=== PATIENT | male | born 1945 | race Caucasian/White ===

== ENCOUNTER 2016-05-16 08:27 | Inpatient (IN) | payer MEDICARE, OTHER ==
[2016-05-16 16:39] LABS: Hematocrit 34.6 % (42.0-52.0); Mean Cell Volume 94.3 fl (78-100); Mean Corpuscular Hgb Conc 31.8 g/dl (32-36); Mean Platelet Volume 9.8 fl (6.0-9.5); Neutrophil # 8.2 K/mm3 (1.3-6.0); Neutrophil % 85.8 % (42-75.0); Platelet Count 273 K/mm3 (150-450); Red Blood Count 3.67 M/mm3 (4.7-6.0); Red Cell Distribution Width 13.3 % (11.5-14.0); White Blood Count 9.6 K/mm3 (4.0-10.5)
[2016-05-16 17:00] LABS: Albumin * 3.6 gm/dl (3.4-5.0); Anion Gap 5.9 mmol/L (6.8-13.8); Bilirubin, Total 0.5 mg/dL (0.0-1.1); Ca. Corrected For Albumin 8.8 mg/dL (8.4-10.2); Calcium * 8.8 mg/dL (7.9-10.9); Carbon Dioxide 38.9 mmol/L (24-32.6); Potassium 4.8 mmol/L (3.4-4.6); Total Protein 6.4 gm/dL (6.2-8.2)
[2016-05-16] MEDS: NORMAL SALINE 1,000 ML IV PRN (17:16)
[2016-05-16] MEDS: METHYLPREDNISOLONE SOD SUCC 100 MG in WATER FOR INJ.,BACTERIOSTATIC 0 ML IV SCH ×2 (17:17→21:18)
[2016-05-16] MEDS: LEVOFLOXACIN 500 MG TABLET PO SCH (17:19)
[2016-05-16] MEDS: ALBUTEROL SULFATE 2.5 MG/0.5 ML VIAL.NEB IH PRN (17:28)
[2016-05-16] MEDS: ALBUTEROL SULFATE 2.5 MG/0.5 ML VIAL.NEB IH SCH ×3 (17:28→22:09)
[2016-05-16] MEDS ORDERED: FLUTICASONE/SALMETEROL 14 PUFF DISK.W.DEV IH SCH (21:00)
[2016-05-16] MEDS: LORazepam 0.5 MG TABLET PO PRN (22:22)
[2016-05-17] MEDS: NORMAL SALINE 1,000 ML IV PRN ×3 (01:13→16:06)
[2016-05-17] MEDS: ALBUTEROL SULFATE 2.5 MG/0.5 ML VIAL.NEB IH SCH ×5 (02:45→18:22)
[2016-05-17] MEDS: LORazepam 0.5 MG TABLET PO PRN (03:46)
[2016-05-17 05:00] LABS: Urine Bilirubin Negative (NEGATIVE); Urine Blood Negative /ul (NEGATIVE); Urine Ketone 50 mg/dL (NEGATIVE); Urine Nitrite Negative (NEGATIVE); Urine Protein Negative (NEGATIVE); Urine Specific Gravity 1.025 SP.GR. (1.005-1.030); Urine Urobilinogen Normal (NORMAL)
[2016-05-17 05:03] LABS: Urine Appearance Clear; Urine Bacteria None Seen; Urine Color Yellow; Urine RBC 0-5 /hpf (0-5); Urine WBC 0-5 /hpf (0-5)
[2016-05-17] MEDS: METHYLPREDNISOLONE SOD SUCC 100 MG in WATER FOR INJ.,BACTERIOSTATIC 0 ML IV SCH ×4 (05:06→21:17)
[2016-05-17] MEDS: PANTOPRAZOLE SODIUM 40 MG TABLET.EC PO SCH (06:26)
--- NOTE | 2016-05-17 08:35 | PN ---
Subjective - Date and Time Seen Date: 05/17/16 Time: 08:31 Subjective Narrative: Still short of breath but feeling better compared yesterday Objective - Review of Systems Generalized/Overall Review: Reports: Weakness EENTM: Reports: Nose Congestion Respiratory: Reports: Cough, Shortness of Breath, Wheezing Cardiac: Reports: No Symptoms Reported Abdominal: Reports: No Symptoms Reported Genitourinary Symptoms: Reports: No Symptoms Reported Musculoskeletal Complaints: Reports: No Symptoms Reported Skin: Reports: No Symptoms Reported Endocrine: Reports: No Symptoms Reported - Vitals Vitals: Last Vital Signs Temp 36.3 C L 05/17/16 07:10 Pulse 99 05/17/16 07:10 Resp 20 05/17/16 07:10 BP 158/84 05/17/16 07:10 Pulse Ox 98 05/17/16 07:17 - Abnormal Lab Findings Abnormal Lab Findings: Abnormal Lab Results 05/16/16 05/16/16 05/16/16 Range/Units 16:35 16:35 16:55 RBC 3.67 L (4.7-6.0) M/mm3 Hgb 11.0 L (13.5-18.0) gm/dL Hct 34.6 L (42.0-52.0) % MCHC 31.8 L (32-36) g/dl MPV 9.8 H (6.0-9.5) fl Immature Gran # (Auto) 0.04 H (0.000-0.0310) K/mm3 Neutrophils % 85.8 H (42-75.0) % Lymphocytes % 5.7 L (20-51) % Neutrophils # 8.2 H (1.3-6.0) K/mm3 Lymphocytes # 0.6 L (1.5-3.5) k/mm3 pCO2 76.9 H* (35.0-48.0) mmHg pO2 (83.0-108.0) mmHg HCO3 37.2 H (21.0-28.0) mmol/L Total CO2 39.5 H (19.0-24.0) mmol/L Base Excess 8.1 H (-2.0-3.0) mmol/L ABG pH 7.30 L (7.35-7.45) ABG O2 Sat (Measured) (94.0-98.0) % Sodium 122 L (132-142) mmol/L Plasma Sodium 122 L (130-142) mmol/L Potassium 4.8 H (3.4-4.6) mmol/L Chloride 82 L (97-106) mmol/L Carbon Dioxide 38.9 H (24-32.6) mmol/L Anion Gap 5.9 L (6.8-13.8) mmol/L Est GFR (Non-Af Amer) 187 H (60-130) mL/min 05/16/16 Range/Units 19:11 RBC (4.7-6.0) M/mm3 Hgb (13.5-18.0) gm/dL Hct (42.0-52.0) % MCHC (32-36) g/dl MPV (6.0-9.5) fl Immature Gran # (Auto) (0.000-0.0310) K/mm3 Neutrophils % (42-75.0) % Lymphocytes % (20-51) % Neutrophils # (1.3-6.0) K/mm3 Lymphocytes # (1.5-3.5) k/mm3 pCO2 68.8 H (35.0-48.0) mmHg pO2 128.4 H (83.0-108.0) mmHg HCO3 34.0 H (21.0-28.0) mmol/L Total CO2 36.1 H (19.0-24.0) mmol/L Base Excess 6.0 H (-2.0-3.0) mmol/L ABG pH 7.31 L (7.35-7.45) ABG O2 Sat (Measured) 98.2 H (94.0-98.0) % Sodium (132-142) mmol/L Plasma Sodium (130-142) mmol/L Potassium (3.4-4.6) mmol/L Chloride (97-106) mmol/L Carbon Dioxide (24-32.6) mmol/L Anion Gap (6.8-13.8) mmol/L Est GFR (Non-Af Amer) (60-130) mL/min - Exam Constitutional: Present: Alert, Oriented x3, Cooperative Respiratory: Present: accessory muscle use, wheezing, expiration (prolonged) Cardiovascular/Chest: Present: no JVD, no murmur, tachycardia Abdomen: Present: soft, nontender Extremity: Present: no pedal edema Skin Exam: Present: normal color, no cyanosis Appearance: Present: appropriate appearance Eye contact: Present: cooperative Assessment/Plan - Problems/Diagnosis (1) Acute exacerbation of chronic obstructive pulmonary disease (COPD) Problem: Acute Narrative: Continue BiPAP with increase IPAP and increased respiratory rate; continue GPN and IV steroid; he will be admitted to acute care because of markedly elevated PCO2 on ABG (2) Hyponatremia Problem: Acute Narrative: Continue IV saline and will stop hydrochlorothiazide
[2016-05-17] MEDS: LEVOFLOXACIN 500 MG TABLET PO SCH (08:36)
[2016-05-17] MEDS: ROFLUMILAST 500 MCG TABLET PO SCH (08:37)
[2016-05-17] MEDS: BENAZEPRIL HCL 10 MG TABLET PO SCH (08:38)
[2016-05-17] MEDS: TIOTROPIUM BROMIDE 5 CAP INHALER IH SCH (08:39)
[2016-05-17 08:44] LABS: Albumin * 3.8 gm/dl (3.4-5.0); Anion Gap 12.5 mmol/L (6.8-13.8); Bilirubin, Total 0.8 mg/dL (0.0-1.1); Ca. Corrected For Albumin 8.5 mg/dL (8.4-10.2); Calcium * 8.7 mg/dL (7.9-10.9); Carbon Dioxide 31.7 mmol/L (24-32.6); Potassium 5.2 mmol/L (3.4-4.6); Total Protein 6.7 gm/dL (6.2-8.2)
[2016-05-17] MEDS ORDERED: ALPRAZolam 0.25 MG TABLET PO SCH (09:00)
[2016-05-17] MEDS ORDERED: TIOTROPIUM BROMIDE 5 CAP INHALER IH SCH (09:00)
[2016-05-17] MEDS ORDERED: HYDROCHLOROTHIAZIDE 25 MG TABLET PO SCH (09:00)
[2016-05-17] MEDS ORDERED: ESCITALOPRAM OXALATE 10 MG TAB PO SCH (09:00)
[2016-05-17] MEDS: FLUTICASONE/SALMETEROL 14 PUFF DISK.W.DEV IH SCH ×2 (09:16→20:57)
[2016-05-17] MEDS ORDERED: ALPRAZolam 0.5 MG TABLET PO ONE (15:46)
[2016-05-17] MEDS: ALPRAZolam 0.5 MG TABLET PO SCH (21:00)
[2016-05-18] MEDS: NORMAL SALINE 1,000 ML IV PRN ×4 (00:12→23:18)
[2016-05-18] MEDS: METHYLPREDNISOLONE SOD SUCC 100 MG in WATER FOR INJ.,BACTERIOSTATIC 0 ML IV SCH ×2 (04:06→09:22)
[2016-05-18] MEDS: ALBUTEROL SULFATE 2.5 MG/0.5 ML VIAL.NEB IH SCH ×2 (06:03→10:42)
[2016-05-18] MEDS: PANTOPRAZOLE SODIUM 40 MG TABLET.EC PO SCH (06:25)
[2016-05-18 07:59] LABS: Albumin * 3.4 gm/dl (3.4-5.0); Anion Gap 10.4 mmol/L (6.8-13.8); Bilirubin, Total 0.4 mg/dL (0.0-1.1); Ca. Corrected For Albumin 8.5 mg/dL (8.4-10.2); Calcium * 8.3 mg/dL (7.9-10.9); Carbon Dioxide 30.3 mmol/L (24-32.6); Potassium 4.7 mmol/L (3.4-4.6); Total Protein 5.9 gm/dL (6.2-8.2)
[2016-05-18] MEDS ORDERED: OXYMETAZOLINE HCL 150 SPRAY BTL NS ONE (08:41)
[2016-05-18] MEDS: FLUTICASONE/SALMETEROL 14 PUFF DISK.W.DEV IH SCH ×2 (08:56→20:20)
[2016-05-18] MEDS: LEVOFLOXACIN 500 MG TABLET PO SCH (08:56)
[2016-05-18] MEDS: ROFLUMILAST 500 MCG TABLET PO SCH (08:56)
[2016-05-18] MEDS: BENAZEPRIL HCL 10 MG TABLET PO SCH (08:57)
[2016-05-18] MEDS: TIOTROPIUM BROMIDE 5 CAP INHALER IH SCH (08:57)
[2016-05-18] MEDS: ALPRAZolam 0.5 MG TABLET PO SCH ×2 (08:59→20:22)
[2016-05-18] MEDS: FLUTICASONE PROPIONATE 120 SPRAY INHALER NS SCH (09:23)
--- NOTE | 2016-05-18 10:14 | PN ---
Subjective - Date and Time Seen Date: 05/18/16 Time: 10:10 Subjective Narrative: Complaining of stuffy nose still weak and short of breath. he did well last night Objective - Review of Systems Generalized/Overall Review: Reports: Weakness EENTM: Reports: Nose Congestion Respiratory: Reports: Cough, Shortness of Breath, Wheezing Cardiac: Reports: No Symptoms Reported Abdominal: Reports: No Symptoms Reported Genitourinary Symptoms: Reports: No Symptoms Reported Musculoskeletal Complaints: Reports: No Symptoms Reported Skin: Reports: No Symptoms Reported - Vitals Vitals: Last Vital Signs Temp 36.3 C L 05/18/16 09:30 Pulse 93 05/18/16 09:30 Resp 22 H 05/18/16 09:30 BP 161/85 05/18/16 09:30 Pulse Ox 99 05/18/16 09:30 - Abnormal Lab Findings Abnormal Lab Findings: Abnormal Lab Results 05/17/16 05/18/16 05/18/16 Range/Units Unknown 07:36 07:50 pCO2 59.1 H 60.1 H (35.0-48.0) mmHg pO2 140.6 H 109.7 H (83.0-108.0) mmHg HCO3 30.2 H 30.8 H (21.0-28.0) mmol/L Total CO2 32.0 H 32.7 H (19.0-24.0) mmol/L Base Excess 3.1 H 3.6 H (-2.0-3.0) mmol/L ABG pH 7.33 L 7.33 L (7.35-7.45) ABG O2 Sat (Measured) 98.6 H (94.0-98.0) % Sodium 129 L (132-142) mmol/L Plasma Sodium 129 L (130-142) mmol/L Potassium 4.7 H (3.4-4.6) mmol/L Chloride 93 L (97-106) mmol/L Est GFR (Non-Af Amer) 174 H D (60-130) mL/min BUN/Creatinine Ratio 24.0 H (9.0-21.6) Random Glucose 124 H (70-110) mg/dL Total Protein 5.9 L (6.2-8.2) gm/dL - Exam Constitutional: Present: Alert, Oriented x3, Cooperative ENT Exam: Present: normal ENT inspection Respiratory: Present: rhonchi, wheezing Cardiovascular/Chest: Present: regular rate, rhythm, no JVD Abdomen: Present: soft, nontender Extremity: Present: no pedal edema Skin Exam: Present: normal color, no cyanosis Assessment/Plan Plan Narrative: PCO2 has decreased to 60 from 78 after adjustment by increasing IPAP to 20 and EPAP of 5; will try to start weaning from the BiPAP today - Problems/Diagnosis (1) Acute exacerbation of chronic obstructive pulmonary disease (COPD) Problem: Acute (2) Hyponatremia Problem: Resolved Narrative: Sodium went up to 129. I would continue to withhold hydrochlorothiazide and Lexapro
[2016-05-18] MEDS: ALPRAZolam 0.5 MG TABLET PO PRN (11:31)
[2016-05-18] MEDS: predniSONE 20 MG TABLET PO SCH (13:40)
[2016-05-18] MEDS ORDERED: HALOPERIDOL 1 MG TABLET PO ONE (13:50)
[2016-05-18] MEDS: ALBUTEROL SULFATE/IPRATROPIUM 3 ML NEBU IH SCH ×3 (15:22→22:36)
[2016-05-19] MEDS: ALBUTEROL SULFATE/IPRATROPIUM 3 ML NEBU IH SCH ×6 (02:04→22:45)
[2016-05-19 06:44] LABS: Albumin * 3.1 gm/dl (3.4-5.0); Anion Gap 7.1 mmol/L (6.8-13.8); BUN/Creatinine Ratio 28.3 (9.0-21.6); Bilirubin, Total 0.3 mg/dL (0.0-1.1); Ca. Corrected For Albumin 8.7 mg/dL (8.4-10.2); Calcium * 8.3 mg/dL (7.9-10.9); Carbon Dioxide 31.2 mmol/L (24-32.6); Potassium 4.3 mmol/L (3.4-4.6); Total Protein 5.3 gm/dL (6.2-8.2)
[2016-05-19] MEDS: NORMAL SALINE 1,000 ML IV PRN (07:51)
[2016-05-19] MEDS: BENAZEPRIL HCL 10 MG TABLET PO SCH (08:40)
[2016-05-19] MEDS: ALPRAZolam 0.5 MG TABLET PO SCH ×2 (08:40→20:12)
[2016-05-19] MEDS: LEVOFLOXACIN 500 MG TABLET PO SCH (08:41)
[2016-05-19] MEDS: ROFLUMILAST 500 MCG TABLET PO SCH (08:41)
[2016-05-19] MEDS: PANTOPRAZOLE SODIUM 40 MG TABLET.EC PO SCH (08:41)
[2016-05-19] MEDS: predniSONE 20 MG TABLET PO SCH (08:41)
[2016-05-19] MEDS: FLUTICASONE PROPIONATE 120 SPRAY INHALER NS SCH (08:53)
[2016-05-19] MEDS: FLUTICASONE/SALMETEROL 14 PUFF DISK.W.DEV IH SCH ×2 (08:55→20:12)
--- NOTE | 2016-05-19 09:47 | PN ---
Subjective - Date and Time Seen Date: 05/19/16 Time: 09:43 Subjective Narrative: Still short of breath less coughing; continued to complain of generalized weakness Objective - Review of Systems Generalized/Overall Review: Reports: Weakness EENTM: Reports: No Symptoms Reported Respiratory: Reports: Shortness of Breath Cardiac: Reports: No Symptoms Reported Abdominal: Reports: No Symptoms Reported Genitourinary Symptoms: Reports: No Symptoms Reported Musculoskeletal Complaints: Reports: No Symptoms Reported Neurological: Reports: No Symptoms Reported Skin: Reports: No Symptoms Reported Endocrine: Reports: No Symptoms Reported - Vitals Vitals: Last Vital Signs Temp 37 C 05/19/16 07:06 Pulse 92 05/19/16 08:40 Resp 26 H 05/19/16 07:06 BP 138/60 05/19/16 08:40 Pulse Ox 99 05/19/16 07:06 - Abnormal Lab Findings Abnormal Lab Findings: Abnormal Lab Results 05/18/16 05/19/16 Range/Units 08:43 06:08 pO2 124.9 H (83.0-108.0) mmHg Total CO2 28.3 H (19.0-24.0) mmol/L ABG O2 Sat (Measured) 98.5 H (94.0-98.0) % Est GFR (Non-Af Amer) 191 H (60-130) mL/min BUN/Creatinine Ratio 28.3 H (9.0-21.6) Total Protein 5.3 L (6.2-8.2) gm/dL Albumin 3.1 L (3.4-5.0) gm/dl - Exam Constitutional: Present: Alert, Oriented x3, Cooperative ENT Exam: Present: normal ENT inspection Respiratory: Present: No wheezing Cardiovascular/Chest: Present: regular rate, rhythm, no JVD Abdomen: Present: soft, nontender Extremity: Present: no pedal edema Skin Exam: Present: normal color 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
[2016-05-19] MEDS: ALPRAZolam 0.5 MG TABLET PO PRN (16:54)
[2016-05-20] MEDS: ALBUTEROL SULFATE/IPRATROPIUM 3 ML NEBU IH SCH ×5 (02:34→18:06)
[2016-05-20] MEDS: PANTOPRAZOLE SODIUM 40 MG TABLET.EC PO SCH (06:43)
[2016-05-20 07:47] LABS: Hematocrit 32.4 % (42.0-52.0); Hemoglobin 9.9 gm/dL (13.5-18.0); Mean Corpuscular Hemoglobin 29.6 pg (27-31); Mean Corpuscular Hgb Conc 30.6 g/dl (32-36); Mean Platelet Volume 9.6 fl (6.0-9.5); Neutrophil # 6.2 K/mm3 (1.3-6.0); Neutrophil % 66.4 % (42-75.0); Platelet Count 231 K/mm3 (150-450); Red Blood Count 3.34 M/mm3 (4.7-6.0); Red Cell Distribution Width 13.2 % (11.5-14.0); White Blood Count 9.3 K/mm3 (4.0-10.5)
[2016-05-20 07:49] LABS: Total Cells Counted 100
[2016-05-20 08:11] LABS: Atypical (Reactive) Lymph 11 % (0-2); Band 7 % (0-2.0); Lymphocyte 21 % (20-51); Monocyte 11 % (0-9); Neutrophil 50 % (42-75); Neutrophil # 4.7 K/mm3 (1.3-6.0)
[2016-05-20] MEDS: predniSONE 20 MG TABLET PO SCH (09:13)
[2016-05-20] MEDS: ROFLUMILAST 500 MCG TABLET PO SCH (09:14)
[2016-05-20] MEDS: BENAZEPRIL HCL 10 MG TABLET PO SCH (09:14)
[2016-05-20] MEDS: LEVOFLOXACIN 500 MG TABLET PO SCH (09:15)
[2016-05-20] MEDS: FLUTICASONE PROPIONATE 120 SPRAY INHALER NS SCH (09:15)
[2016-05-20] MEDS: FLUTICASONE/SALMETEROL 14 PUFF DISK.W.DEV IH SCH ×2 (09:16→20:45)
[2016-05-20] MEDS: ALPRAZolam 0.5 MG TABLET PO SCH ×2 (09:20→20:45)
--- NOTE | 2016-05-20 12:09 | PN ---
Subjective - Date and Time Seen Date: 05/20/16 Time: 08:00 Subjective Narrative: A little better today. A little less SOB. A little less cough. Cough is not productive. Objective - Review of Systems Generalized/Overall Review: Reports: Malaise, Fatigue EENTM: Reports: No Symptoms Reported Respiratory: Reports: Cough, Shortness of Breath, Wheezing Cardiac: Reports: No Symptoms Reported Abdominal: Reports: No Symptoms Reported Genitourinary Symptoms: Reports: No Symptoms Reported Musculoskeletal Complaints: Reports: No Symptoms Reported Neurological: Reports: Anxiety Skin: Reports: No Symptoms Reported Endocrine: Reports: No Symptoms Reported Misc: All systems neg except as marked - Vitals Vitals: Last Vital Signs Selected Entries 05/20/16 07:04 Temperature 36.4 C L Temperature Axillary Source Pulse Rate 81 Respiratory 20 Rate Blood Pressure 144/85 Blood Pressure Supine Position O2 Sat by Pulse 100 Oximetry Oxygen Delivery CPAP Method - Abnormal Lab Findings Abnormal Lab Findings: Abnormal Lab Results 05/20/16 05/20/16 05/20/16 Range/Units 07:35 07:35 11:05 RBC 3.34 L (4.7-6.0) M/mm3 Hgb 9.9 L (13.5-18.0) gm/dL Hct 32.4 L (42.0-52.0) % MCHC 30.6 L (32-36) g/dl MPV 9.6 H (6.0-9.5) fl Band Neuts % (Manual) 7 H (0-2.0) % Lymphocytes % 13.2 L (20-51) % Monocytes % 20.1 H (0.0-9) % Monocytes % (Manual) 11 H (0-9) % Neutrophils # 6.2 H (1.3-6.0) K/mm3 Lymphocytes # 1.2 L (1.5-3.5) k/mm3 Monocytes # 1.9 H (0.0-1.0) k/mm3 Atypic/Reactive Lymphs 11 H (0-2) % pCO2 56.7 H 71.6 H* (35.0-48.0) mmHg pO2 164.4 H (83.0-108.0) mmHg HCO3 31.9 H 34.7 H (21.0-28.0) mmol/L Total CO2 33.6 H 36.9 H (19.0-24.0) mmol/L Base Excess 5.4 H 6.3 H (-2.0-3.0) mmol/L ABG pH 7.30 L (7.35-7.45) ABG O2 Sat (Measured) 99.0 H (94.0-98.0) % - Exam Constitutional: Present: Alert, Oriented x3, Cooperative, Well developed, Well nourished, Mild distress ENT Exam: Present: normal ENT inspection Neck: Present: normal inspection Respiratory: Present: decreased breath sounds, wheezing Cardiovascular/Chest: Present: regular rate, rhythm, no murmur Abdomen: Present: Normal bowel sounds, soft, nontender, nondistended, no rebound tenderness, no hepatospenomegaly, no masses Extremity: Present: normal inspection, pedal edema Skin Exam: Present: normal color, warm/dry, no cyanosis Lymphatic: Present: no adenopathy Neurologic: Present: alert, oriented x 3 Appearance: Present: appropriate appearance, appropriate insight, neat, no memory impairment Eye contact: Present: cooperative, good eye contact Assessment/Plan Plan Narrative: Continue current treatment. Needs bipap if not eating. Follow labs. - Problems/Diagnosis (1) Anxiety Problem: Chronic (2) Acute exacerbation of chronic obstructive pulmonary disease (COPD) Problem: Acute (3) Hypertension Problem: Chronic Qualifiers: Hypertension type: essential hypertension Qualified Code(s): I10 - Essential (primary) hypertension
[2016-05-20] MEDS: ALPRAZolam 0.5 MG TABLET PO PRN (19:08)
[2016-05-21] MEDS: ALBUTEROL SULFATE/IPRATROPIUM 3 ML NEBU IH SCH ×7 (00:01→22:17)
[2016-05-21 05:39] LABS: Hematocrit 32.3 % (42.0-52.0); Mean Cell Volume 96.7 fl (78-100); Mean Corpuscular Hemoglobin 29.9 pg (27-31); Mean Platelet Volume 10.4 fl (6.0-9.5); Neutrophil # 5.3 K/mm3 (1.3-6.0); Neutrophil % 67.7 % (42-75.0); Platelet Count 238 K/mm3 (150-450); Red Blood Count 3.34 M/mm3 (4.7-6.0); Red Cell Distribution Width 13.2 % (11.5-14.0); White Blood Count 7.8 K/mm3 (4.0-10.5)
[2016-05-21 06:00] LABS: Albumin * 3.1 gm/dl (3.4-5.0); Anion Gap 3.6 mmol/L (6.8-13.8); Bilirubin, Total 0.3 mg/dL (0.0-1.1); Ca. Corrected For Albumin 9.4 mg/dL (8.4-10.2); Carbon Dioxide 37.4 mmol/L (24-32.6); Total Protein 5.3 gm/dL (6.2-8.2)
[2016-05-21] MEDS: PANTOPRAZOLE SODIUM 40 MG TABLET.EC PO SCH (07:12)
[2016-05-21] MEDS: ALPRAZolam 0.5 MG TABLET PO PRN (07:21)
[2016-05-21] MEDS: FUROSEMIDE 10 MG/ML VIAL IV SCH ×2 (08:06→21:24)
[2016-05-21] MEDS: BENAZEPRIL HCL 10 MG TABLET PO SCH (08:13)
[2016-05-21] MEDS: LEVOFLOXACIN 500 MG TABLET PO SCH (08:13)
[2016-05-21] MEDS: predniSONE 20 MG TABLET PO SCH (08:14)
[2016-05-21] MEDS: ROFLUMILAST 500 MCG TABLET PO SCH (08:15)
[2016-05-21] MEDS: FLUTICASONE PROPIONATE 120 SPRAY INHALER NS SCH (08:16)
[2016-05-21] MEDS: ALPRAZolam 0.5 MG TABLET PO SCH ×2 (08:16→21:12)
[2016-05-21] MEDS: FLUTICASONE/SALMETEROL 14 PUFF DISK.W.DEV IH SCH ×2 (08:17→21:05)
--- NOTE | 2016-05-21 08:26 | PN ---
Subjective - Date and Time Seen Date: 05/21/16 Time: 08:22 Subjective Narrative: Breathing and feeling better today; really stronger and will try to do some walking Objective - Review of Systems Generalized/Overall Review: Reports: Weakness EENTM: Reports: No Symptoms Reported Respiratory: Reports: Shortness of Breath Cardiac: Reports: No Symptoms Reported Abdominal: Reports: No Symptoms Reported Genitourinary Symptoms: Reports: No Symptoms Reported Musculoskeletal Complaints: Reports: No Symptoms Reported Neurological: Reports: No Symptoms Reported Skin: Reports: No Symptoms Reported - Vitals Vitals: Last Vital Signs Temp 36.9 C 05/20/16 22:51 Pulse 90 05/21/16 08:13 Resp 18 05/21/16 06:09 BP 142/80 05/21/16 08:13 Pulse Ox 95 05/21/16 05:59 - Abnormal Lab Findings Abnormal Lab Findings: Abnormal Lab Results 05/20/16 05/20/16 05/21/16 Range/Units 11:05 13:00 04:55 RBC 3.34 L (4.7-6.0) M/mm3 Hgb 10.0 L (13.5-18.0) gm/dL Hct 32.3 L (42.0-52.0) % MCHC 31.0 L (32-36) g/dl MPV 10.4 H (6.0-9.5) fl Lymphocytes % 14.8 L (20-51) % Monocytes % 17.4 H (0.0-9) % Lymphocytes # 1.2 L (1.5-3.5) k/mm3 Monocytes # 1.4 H (0.0-1.0) k/mm3 pCO2 71.6 H* 53.8 H (35.0-48.0) mmHg pO2 73.7 L (83.0-108.0) mmHg HCO3 34.7 H 29.3 H (21.0-28.0) mmol/L Total CO2 36.9 H 31.0 H (19.0-24.0) mmol/L Base Excess 6.3 H (-2.0-3.0) mmol/L ABG pH 7.30 L (7.35-7.45) Carbon Dioxide (24-32.6) mmol/L Anion Gap (6.8-13.8) mmol/L Est GFR (Non-Af Amer) (60-130) mL/min BUN/Creatinine Ratio (9.0-21.6) Total Protein (6.2-8.2) gm/dL Albumin (3.4-5.0) gm/dl 05/21/16 05/21/16 Range/Units 04:55 05:55 RBC (4.7-6.0) M/mm3 Hgb (13.5-18.0) gm/dL Hct (42.0-52.0) % MCHC (32-36) g/dl MPV (6.0-9.5) fl Lymphocytes % (20-51) % Monocytes % (0.0-9) % Lymphocytes # (1.5-3.5) k/mm3 Monocytes # (0.0-1.0) k/mm3 pCO2 49.5 H (35.0-48.0) mmHg pO2 79.6 L (83.0-108.0) mmHg HCO3 29.8 H (21.0-28.0) mmol/L Total CO2 31.4 H (19.0-24.0) mmol/L Base Excess 3.9 H (-2.0-3.0) mmol/L ABG pH (7.35-7.45) Carbon Dioxide 37.4 H (24-32.6) mmol/L Anion Gap 3.6 L (6.8-13.8) mmol/L Est GFR (Non-Af Amer) 174 H (60-130) mL/min BUN/Creatinine Ratio 30.0 H (9.0-21.6) Total Protein 5.3 L (6.2-8.2) gm/dL Albumin 3.1 L (3.4-5.0) gm/dl - Exam Constitutional: Present: Alert, Oriented x3, Cooperative, No distress Respiratory: Present: decreased breath sounds, No wheezing Abdomen: Present: soft, nontender Extremity: Present: lower extremity edema Skin Exam: Present: normal color Assessment/Plan Plan Narrative: will start LAMA and continue LABA - Problems/Diagnosis (1) Acute exacerbation of chronic obstructive pulmonary disease (COPD) Problem: Acute (2) Hyponatremia Problem: Resolved (3) Anxiety Problem: Chronic (4) Anemia Problem: Acute Narrative: anemia work up
[2016-05-21 08:44] LABS: Iron 64 mcg/dL (35-120); Transferrin Sat. (% Sat.) 21 % (15-55)
[2016-05-21] MEDS: TIOTROPIUM BROMIDE 5 CAP INHALER IH SCH (10:09)
[2016-05-22] MEDS: ALBUTEROL SULFATE/IPRATROPIUM 3 ML NEBU IH SCH ×6 (02:20→22:49)
[2016-05-22 06:09] LABS: Hemoglobin 10.8 gm/dL (13.5-18.0); Mean Cell Volume 96.4 fl (78-100); Mean Corpuscular Hemoglobin 29.8 pg (27-31); Mean Corpuscular Hgb Conc 30.9 g/dl (32-36); Mean Platelet Volume 10.7 fl (6.0-9.5); Platelet Count 245 K/mm3 (150-450); Red Blood Count 3.63 M/mm3 (4.7-6.0); Red Cell Distribution Width 13.5 % (11.5-14.0); White Blood Count 8.6 K/mm3 (4.0-10.5)
[2016-05-22 06:12] LABS: Total Cells Counted 100
[2016-05-22 06:25] LABS: Albumin * 3.3 gm/dl (3.4-5.0); Anion Gap 7.9 mmol/L (6.8-13.8); BUN/Creatinine Ratio 28.6 (9.0-21.6); Bilirubin, Total 0.5 mg/dL (0.0-1.1); Calcium * 8.8 mg/dL (7.9-10.9); Carbon Dioxide 40.7 mmol/L (24-32.6); Potassium 3.6 mmol/L (3.4-4.6); Total Protein 5.6 gm/dL (6.2-8.2)
[2016-05-22 06:40] LABS: Atypical (Reactive) Lymph 1 % (0-2); Band 2 % (0-2.0); Lymphocyte 11 % (20-51); Monocyte 17 % (0-9); Neutrophil 69 % (42-75); Neutrophil # 5.9 K/mm3 (1.3-6.0); Platelet Estimate Normal (NORMAL); RBC Morphology Normal (NORMAL)
[2016-05-22] MEDS: FUROSEMIDE 10 MG/ML VIAL IV SCH (06:44)
[2016-05-22] MEDS: PANTOPRAZOLE SODIUM 40 MG TABLET.EC PO SCH (06:44)
--- NOTE | 2016-05-22 08:39 | PN ---
Subjective - Date and Time Seen Date: 05/22/16 Time: 08:34 Subjective Narrative: Breathing better but she did get short of breath; complaining of generalized weakness Objective - Review of Systems Generalized/Overall Review: Reports: Weakness EENTM: Reports: No Symptoms Reported Respiratory: Reports: Cough, Shortness of Breath Cardiac: Reports: No Symptoms Reported Abdominal: Reports: No Symptoms Reported Genitourinary Symptoms: Reports: No Symptoms Reported Musculoskeletal Complaints: Reports: No Symptoms Reported Neurological: Reports: No Symptoms Reported Skin: Reports: No Symptoms Reported - Vitals Vitals: Last Vital Signs Temp 36.3 C L 05/22/16 01:55 Pulse 94 05/22/16 06:44 Resp 24 H 05/22/16 06:12 BP 150/83 05/22/16 06:44 Pulse Ox 95 05/22/16 08:28 - Abnormal Lab Findings Abnormal Lab Findings: Abnormal Lab Results 05/21/16 05/22/16 05/22/16 Range/Units 01:55 05:15 05:15 RBC 3.63 L (4.7-6.0) M/mm3 Hgb 10.8 L (13.5-18.0) gm/dL Hct 35.0 L (42.0-52.0) % MCHC 30.9 L (32-36) g/dl MPV 10.7 H (6.0-9.5) fl Lymphocytes % (Manual) 11 L (20-51) % Monocytes % (Manual) 17 H (0-9) % Lymphocytes # (Manual) 0.9 L (1.5-3.5) k/mm3 Monocytes # (Manual) 1.5 H (0.0-1.0) k/mm3 Chloride 91 L (97-106) mmol/L Carbon Dioxide 40.7 H (24-32.6) mmol/L Est GFR (Non-Af Amer) 152 H (60-130) mL/min BUN/Creatinine Ratio 28.6 H (9.0-21.6) B-Natriuretic Peptide 359 H (5-350) pg/mL Total Protein 5.6 L (6.2-8.2) gm/dL Albumin 3.3 L (3.4-5.0) gm/dl - Exam Constitutional: Present: Alert, Oriented x3, Cooperative, No distress ENT Exam: Present: normal ENT inspection Respiratory: Present: No wheezing, other - Diminished breath sounds Cardiovascular/Chest: Present: regular rate, rhythm, other - Distant heart sound Extremity: Present: no pedal edema Skin Exam: Present: normal color, warm/dry, no cyanosis 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
[2016-05-22] MEDS: ALPRAZolam 0.5 MG TABLET PO SCH ×2 (09:29→21:19)
[2016-05-22] MEDS: predniSONE 20 MG TABLET PO SCH (09:29)
[2016-05-22] MEDS: ROFLUMILAST 500 MCG TABLET PO SCH (09:30)
[2016-05-22] MEDS: LEVOFLOXACIN 500 MG TABLET PO SCH (09:30)
[2016-05-22] MEDS: BENAZEPRIL HCL 10 MG TABLET PO SCH (09:30)
[2016-05-22] MEDS: TIOTROPIUM BROMIDE 5 CAP INHALER IH SCH (09:35)
[2016-05-22] MEDS: FLUTICASONE PROPIONATE 120 SPRAY INHALER NS SCH (09:35)
[2016-05-22] MEDS: FLUTICASONE/SALMETEROL 14 PUFF DISK.W.DEV IH SCH ×2 (09:35→21:19)
[2016-05-22] MEDS ORDERED: HALOPERIDOL 5 MG TABLET PO ONE (10:26)
[2016-05-22] MEDS: ESCITALOPRAM OXALATE 10 MG TAB PO SCH (11:06)
[2016-05-22] MEDS: ALPRAZolam 0.5 MG TABLET PO PRN (14:28)
[2016-05-23] MEDS: ALBUTEROL SULFATE/IPRATROPIUM 3 ML NEBU IH SCH ×6 (02:01→22:33)
[2016-05-23] MEDS: PANTOPRAZOLE SODIUM 40 MG TABLET.EC PO SCH (08:40)
[2016-05-23] MEDS: ESCITALOPRAM OXALATE 10 MG TAB PO SCH (08:40)
[2016-05-23] MEDS: ALPRAZolam 0.5 MG TABLET PO SCH ×2 (08:40→21:18)
[2016-05-23] MEDS: predniSONE 20 MG TABLET PO SCH (08:40)
[2016-05-23] MEDS: LEVOFLOXACIN 500 MG TABLET PO SCH (08:41)
[2016-05-23] MEDS: BENAZEPRIL HCL 10 MG TABLET PO SCH (08:41)
[2016-05-23] MEDS: ROFLUMILAST 500 MCG TABLET PO SCH (08:41)
[2016-05-23] MEDS: FLUTICASONE/SALMETEROL 14 PUFF DISK.W.DEV IH SCH ×2 (08:44→21:18)
[2016-05-23] MEDS: TIOTROPIUM BROMIDE 5 CAP INHALER IH SCH (08:44)
--- NOTE | 2016-05-23 08:45 | PN ---
Subjective - Date and Time Seen Date: 05/23/16 Time: 08:40 Subjective Narrative: still short of breath and feeling weak; complain of anxiety Objective - Review of Systems Generalized/Overall Review: Reports: Weakness EENTM: Reports: No Symptoms Reported Respiratory: Reports: Shortness of Breath Cardiac: Reports: No Symptoms Reported Abdominal: Reports: No Symptoms Reported Genitourinary Symptoms: Reports: No Symptoms Reported Musculoskeletal Complaints: Reports: No Symptoms Reported Neurological: Reports: No Symptoms Reported Skin: Reports: No Symptoms Reported - Vitals Vitals: Last Vital Signs Temp 37.0 C 05/23/16 05:00 Pulse 96 05/23/16 07:40 Resp 22 H 05/23/16 07:40 BP 126/78 05/23/16 05:00 Pulse Ox 96 05/23/16 07:40 - Abnormal Lab Findings Abnormal Lab Findings: Abnormal Lab Results 05/22/16 Range/Units 08:32 pCO2 62.6 H (35.0-48.0) mmHg pO2 113.9 H (83.0-108.0) mmHg HCO3 35.4 H (21.0-28.0) mmol/L Total CO2 37.3 H (19.0-24.0) mmol/L Base Excess 8.2 H (-2.0-3.0) mmol/L - Exam Constitutional: Present: Alert, Oriented x3, Cooperative, No distress Respiratory: Present: lungs clear, other - diminize breath sounds Abdomen: Present: soft, nontender Extremity: Present: no pedal edema Skin Exam: Present: normal color Assessment/Plan Plan Narrative: Oxygenating well but continued to be hypercapnic getting dependent on BiPAP; will plan on jail placement and arrangements for home BiPAP - Problems/Diagnosis (1) Acute exacerbation of chronic obstructive pulmonary disease (COPD) Problem: Acute (2) Hyponatremia Problem: Resolved (3) Anxiety Problem: Chronic (4) Anemia Problem: Acute
[2016-05-23] MEDS: FLUTICASONE PROPIONATE 120 SPRAY INHALER NS SCH (08:50)
[2016-05-23] MEDS: ALPRAZolam 0.5 MG TABLET PO PRN ×2 (13:22→19:36)
[2016-05-24] MEDS: ALBUTEROL SULFATE/IPRATROPIUM 3 ML NEBU IH SCH ×6 (02:08→22:07)
[2016-05-24] MEDS: PANTOPRAZOLE SODIUM 40 MG TABLET.EC PO SCH (06:37)
[2016-05-24 06:39] LABS: Hematocrit 33.9 % (42.0-52.0); Hemoglobin 10.5 gm/dL (13.5-18.0); Mean Cell Volume 96.3 fl (78-100); Mean Corpuscular Hemoglobin 29.8 pg (27-31); Mean Platelet Volume 10.2 fl (6.0-9.5); Neutrophil # 5.8 K/mm3 (1.3-6.0); Neutrophil % 67.2 % (42-75.0); Platelet Count 226 K/mm3 (150-450); Red Blood Count 3.52 M/mm3 (4.7-6.0); Red Cell Distribution Width 13.6 % (11.5-14.0); White Blood Count 8.6 K/mm3 (4.0-10.5)
[2016-05-24] MEDS: ALPRAZolam 0.5 MG TABLET PO PRN (06:48)
[2016-05-24 07:03] LABS: Albumin * 3.1 gm/dl (3.4-5.0); Anion Gap 7.2 mmol/L (6.8-13.8); BUN/Creatinine Ratio 28.9 (9.0-21.6); Bilirubin, Total 0.5 mg/dL (0.0-1.1); Ca. Corrected For Albumin 9.1 mg/dL (8.4-10.2); Calcium * 8.7 mg/dL (7.9-10.9); Carbon Dioxide 40.4 mmol/L (24-32.6); Potassium 3.6 mmol/L (3.4-4.6); Total Protein 5.4 gm/dL (6.2-8.2)
--- NOTE | 2016-05-24 08:41 | PN ---
Subjective - Date and Time Seen Date: 05/24/16 Time: 08:37 Subjective Narrative: Complaining of shortness of breath and weakness Objective - Review of Systems Generalized/Overall Review: Reports: Weakness EENTM: Reports: No Symptoms Reported Respiratory: Reports: Shortness of Breath Cardiac: Reports: No Symptoms Reported Abdominal: Reports: No Symptoms Reported Genitourinary Symptoms: Reports: No Symptoms Reported Musculoskeletal Complaints: Reports: No Symptoms Reported Neurological: Reports: No Symptoms Reported Skin: Reports: No Symptoms Reported - Vitals Vitals: Last Vital Signs Temp 36.7 C 05/24/16 06:48 Pulse 84 05/24/16 06:48 Resp 20 05/24/16 06:48 BP 146/83 05/24/16 06:48 Pulse Ox 100 05/24/16 06:48 - Abnormal Lab Findings Abnormal Lab Findings: Abnormal Lab Results 05/23/16 05/24/16 05/24/16 Range/Units 11:10 06:13 06:29 RBC 3.52 L (4.7-6.0) M/mm3 Hgb 10.5 L (13.5-18.0) gm/dL Hct 33.9 L (42.0-52.0) % MCHC 31.0 L (32-36) g/dl MPV 10.2 H (6.0-9.5) fl Immature Gran % (Auto) 0.50 H (0.001-0.429) % Immature Gran # (Auto) 0.04 H (0.000-0.0310) K/mm3 Lymphocytes % 16.2 L (20-51) % Monocytes % 15.2 H (0.0-9) % Lymphocytes # 1.4 L (1.5-3.5) k/mm3 Monocytes # 1.3 H (0.0-1.0) k/mm3 pCO2 73.1 H* (35.0-48.0) mmHg HCO3 40.8 H (21.0-28.0) mmol/L Total CO2 43.1 H (19.0-24.0) mmol/L Base Excess 12.8 H (-2.0-3.0) mmol/L Chloride (97-106) mmol/L Carbon Dioxide (24-32.6) mmol/L Est GFR (Non-Af Amer) (60-130) mL/min BUN/Creatinine Ratio (9.0-21.6) Total Protein (6.2-8.2) gm/dL Albumin (3.4-5.0) gm/dl Ur Random Sodium 37 L (40-220) mmol/L 05/24/16 Range/Units 06:29 RBC (4.7-6.0) M/mm3 Hgb (13.5-18.0) gm/dL Hct (42.0-52.0) % MCHC (32-36) g/dl MPV (6.0-9.5) fl Immature Gran % (Auto) (0.001-0.429) % Immature Gran # (Auto) (0.000-0.0310) K/mm3 Lymphocytes % (20-51) % Monocytes % (0.0-9) % Lymphocytes # (1.5-3.5) k/mm3 Monocytes # (0.0-1.0) k/mm3 pCO2 (35.0-48.0) mmHg HCO3 (21.0-28.0) mmol/L Total CO2 (19.0-24.0) mmol/L Base Excess (-2.0-3.0) mmol/L Chloride 88 L (97-106) mmol/L Carbon Dioxide 40.4 H (24-32.6) mmol/L Est GFR (Non-Af Amer) 196 H D (60-130) mL/min BUN/Creatinine Ratio 28.9 H (9.0-21.6) Total Protein 5.4 L (6.2-8.2) gm/dL Albumin 3.1 L (3.4-5.0) gm/dl Ur Random Sodium (40-220) mmol/L - Exam Constitutional: Present: Alert, Oriented x3, Cooperative, No distress Respiratory: Present: no respiratory distress, decreased breath sounds Cardiovascular/Chest: Present: regular rate, rhythm Abdomen: Present: soft, nontender Extremity: Present: no pedal edema Assessment/Plan Plan Narrative: O2 saturation during the night to remain within normal limit; ABG this morning show PCO2 of 72 with normal pH I will refer him to a livestock farm workers Dr. Brewster I will put him back on BiPAP IPAP pressure of 20 and a EPAP pressure of 5 - Problems/Diagnosis (1) Acute exacerbation of chronic obstructive pulmonary disease (COPD) Problem: Acute (2) Hyponatremia Problem: Resolved (3) Anxiety Problem: Chronic (4) Anemia Problem: Acute
[2016-05-24] MEDS: FLUTICASONE/SALMETEROL 14 PUFF DISK.W.DEV IH SCH ×2 (09:20→20:19)
[2016-05-24] MEDS: ROFLUMILAST 500 MCG TABLET PO SCH (09:21)
[2016-05-24] MEDS: ESCITALOPRAM OXALATE 10 MG TAB PO SCH (09:21)
[2016-05-24] MEDS: BENAZEPRIL HCL 10 MG TABLET PO SCH (09:21)
[2016-05-24] MEDS: FLUTICASONE PROPIONATE 120 SPRAY INHALER NS SCH (09:21)
[2016-05-24] MEDS: LEVOFLOXACIN 500 MG TABLET PO SCH (09:21)
[2016-05-24] MEDS: predniSONE 20 MG TABLET PO SCH (09:21)
[2016-05-24] MEDS: TIOTROPIUM BROMIDE 5 CAP INHALER IH SCH (09:22)
[2016-05-24] MEDS: ALPRAZolam 0.5 MG TABLET PO SCH ×2 (09:34→20:21)
[2016-05-24] MEDS ORDERED: ALPRAZolam 0.5 MG TABLET PO ONE (14:33)
[2016-05-25] MEDS: ALBUTEROL SULFATE/IPRATROPIUM 3 ML NEBU IH SCH ×6 (03:10→22:17)
[2016-05-25] MEDS: PANTOPRAZOLE SODIUM 40 MG TABLET.EC PO SCH (07:26)
[2016-05-25] MEDS: FLUTICASONE/SALMETEROL 14 PUFF DISK.W.DEV IH SCH ×2 (08:14→20:37)
[2016-05-25] MEDS: TIOTROPIUM BROMIDE 5 CAP INHALER IH SCH (08:15)
[2016-05-25] MEDS: FLUTICASONE PROPIONATE 120 SPRAY INHALER NS SCH (08:19)
[2016-05-25] MEDS: BENAZEPRIL HCL 10 MG TABLET PO SCH (08:20)
[2016-05-25] MEDS: ESCITALOPRAM OXALATE 10 MG TAB PO SCH (08:22)
[2016-05-25] MEDS: LEVOFLOXACIN 500 MG TABLET PO SCH (08:23)
[2016-05-25] MEDS: ROFLUMILAST 500 MCG TABLET PO SCH (08:25)
[2016-05-25] MEDS: predniSONE 20 MG TABLET PO SCH (08:26)
[2016-05-25] MEDS: ALPRAZolam 0.5 MG TABLET PO SCH ×2 (08:32→20:32)
--- NOTE | 2016-05-25 14:25 | PN ---
Subjective - Date and Time Seen Date: 05/25/16 Time: 13:30 Subjective Narrative: Complaining of shortness of breath and severe weakness Objective - Review of Systems Generalized/Overall Review: Reports: Weakness Respiratory: Reports: Shortness of Breath Cardiac: Reports: No Symptoms Reported Abdominal: Reports: No Symptoms Reported Genitourinary Symptoms: Reports: No Symptoms Reported Musculoskeletal Complaints: Reports: No Symptoms Reported Neurological: Reports: No Symptoms Reported Skin: Reports: No Symptoms Reported - Vitals Vitals: Last Vital Signs Temp 36.9 C 05/25/16 10:15 Pulse 87 05/25/16 10:46 Resp 18 05/25/16 10:46 BP 139/76 05/25/16 10:15 Pulse Ox 100 05/25/16 10:36 - Exam Constitutional: Present: Alert, Oriented x3, Cooperative, No distress Respiratory: Present: chest non-tender, no accessory muscle use, decreased breath sounds, No wheezing Cardiovascular/Chest: Present: regular rate, rhythm Abdomen: Present: soft, nontender Skin Exam: Present: normal color, warm/dry Assessment/Plan Plan Narrative: He is oxygenating well but the main hypercapnic. I have consulted registered nurse cardiovascular icu Dr. Brewster and his recommendation is for him to be transferred to a long-term pulmonary rehabilitation hospital - Problems/Diagnosis (1) Acute exacerbation of chronic obstructive pulmonary disease (COPD) Problem: Acute (2) Hyponatremia Problem: Resolved (3) Anxiety Problem: Chronic (4) Anemia Problem: Acute
[2016-05-25] MEDS: ALPRAZolam 0.5 MG TABLET PO PRN (14:29)
[2016-05-26] MEDS: ALBUTEROL SULFATE/IPRATROPIUM 3 ML NEBU IH SCH ×6 (02:09→22:25)
[2016-05-26] MEDS: PANTOPRAZOLE SODIUM 40 MG TABLET.EC PO SCH (06:33)
--- NOTE | 2016-05-26 08:04 | PN ---
Subjective - Date and Time Seen Date: 05/26/16 Time: 08:00 Subjective Narrative: Complaining of shortness of breath and weakness Continued to have anxiety spell Objective - Review of Systems Generalized/Overall Review: Reports: Weakness EENTM: Reports: No Symptoms Reported Respiratory: Reports: Cough, Shortness of Breath, Wheezing Cardiac: Reports: No Symptoms Reported Abdominal: Reports: No Symptoms Reported, Other - anorexia Genitourinary Symptoms: Reports: No Symptoms Reported Musculoskeletal Complaints: Reports: No Symptoms Reported Neurological: Reports: Anxiety, Depressed, Tremors, Weakness Skin: Reports: No Symptoms Reported - Vitals Vitals: Last Vital Signs Temp 36.7 C 05/26/16 04:02 Pulse 79 05/26/16 06:09 Resp 18 05/26/16 06:09 BP 133/83 05/26/16 04:02 Pulse Ox 100 05/26/16 07:13 - Exam Constitutional: Present: Alert, Oriented x3, Cooperative Respiratory: Present: decreased breath sounds, accessory muscle use Cardiovascular/Chest: Present: regular rate, rhythm Abdomen: Present: soft, nontender Extremity: Present: no pedal edema Skin Exam: Present: normal color, warm/dry Eye contact: Present: cooperative Assessment/Plan Plan Narrative: According to the continuous pillowcase cutter. Talking to [facility] that he does not qualify for admission their unit Therefore will continue current care and pulmonary rehabilitation and possible penitentiary transfer on Sunday - Problems/Diagnosis (1) Acute exacerbation of chronic obstructive pulmonary disease (COPD) Problem: Acute (2) Hyponatremia Problem: Resolved (3) Anxiety Problem: Chronic (4) Anemia Problem: Acute
[2016-05-26] MEDS: BENAZEPRIL HCL 10 MG TABLET PO SCH (09:15)
[2016-05-26] MEDS: TIOTROPIUM BROMIDE 5 CAP INHALER IH SCH (09:16)
[2016-05-26] MEDS: FLUTICASONE PROPIONATE 120 SPRAY INHALER NS SCH (09:17)
[2016-05-26] MEDS: predniSONE 20 MG TABLET PO SCH (09:18)
[2016-05-26] MEDS: ROFLUMILAST 500 MCG TABLET PO SCH (09:19)
[2016-05-26] MEDS: ESCITALOPRAM OXALATE 10 MG TAB PO SCH (09:19)
[2016-05-26] MEDS: ALPRAZolam 0.5 MG TABLET PO SCH ×2 (09:25→21:33)
[2016-05-26] MEDS: FLUTICASONE/SALMETEROL 14 PUFF DISK.W.DEV IH SCH ×2 (09:25→20:42)
[2016-05-26] MEDS: ALPRAZolam 0.5 MG TABLET PO PRN ×2 (13:25→19:33)
[2016-05-26] MEDS: ALBUTEROL SULFATE 2.5 MG/0.5 ML VIAL.NEB IH PRN (14:25)
[2016-05-27] MEDS: ALBUTEROL SULFATE/IPRATROPIUM 3 ML NEBU IH SCH ×7 (02:27→22:28)
[2016-05-27] MEDS: PANTOPRAZOLE SODIUM 40 MG TABLET.EC PO SCH (07:40)
[2016-05-27] MEDS: MORPHINE SULFATE 10 MG/0.5 ML SYRINGE PO PRN ×2 (07:40→23:38)
--- NOTE | 2016-05-27 07:43 | PN ---
Subjective - Date and Time Seen Date: 05/27/16 Time: 07:14 Subjective Narrative: Pt did ok overnight without any complaints. Was able to tolerate wearing the bipap for 4 hours without problems. Only received scheduled dose of xanax, no PRN. Pt is agreeable to trying morphine PRN for air hunger to assist with breathing. Still pending placement and discussion with family for goals of care , will be here over the weekend. Objective - Review of Systems Generalized/Overall Review: Reports: Weakness, Fatigue EENTM: Reports: No Symptoms Reported Respiratory: Reports: Cough, Shortness of Breath, Orthopnea, Wheezing Cardiac: Reports: No Symptoms Reported Abdominal: Reports: Other - poor appetite Genitourinary Symptoms: Reports: No Symptoms Reported Musculoskeletal Complaints: Reports: No Symptoms Reported Neurological: Reports: Anxiety, Depressed Skin: Reports: Dryness Endocrine: Reports: No Symptoms Reported - Vitals Vitals: Last Vital Signs Temp 36.7 C 05/27/16 02:35 Pulse 87 05/27/16 06:17 Resp 18 05/27/16 06:17 BP 137/71 05/27/16 02:35 Pulse Ox 100 05/27/16 07:11 - Exam Constitutional: Present: Alert, Oriented x3, Cooperative, No distress ENT Exam: Present: hearing grossly normal Respiratory: Present: respiratory distress, decreased breath sounds, accessory muscle use, wheezing Cardiovascular/Chest: Present: normal peripheral pulses, no chest tenderness Abdomen: Present: Normal bowel sounds, soft, nontender, nondistended Extremity: Present: normal range of motion, non-tender, normal inspection, no calf tenderness, normal capillary refill Skin Exam: Present: normal color, warm/dry, no cyanosis Neurologic: Present: alert, oriented x 3, depressed affect Appearance: Present: appropriate appearance, appropriate insight, neat, no memory impairment Eye contact: Present: cooperative, good eye contact, normal speech Thoughts: Present: normal thought pattern, no apparent hallucination Assessment/Plan - Problems/Diagnosis (1) Anxiety Problem: Chronic Narrative: Continue xanax BID and PRN Q6H for anxiety, will add morphine for air hunger. (2) Acute exacerbation of chronic obstructive pulmonary disease (COPD) Problem: Acute Narrative: Pt with end stage COPD, likely nearing the end with poor hope of full recovery. Dr. Woods plans on discussing goals of care later when is present. Pt agreeable to add morphine to regimen to assist with air hunger. Tolerated 4 hours of bipap last night, continues to be dyspnic while at rest with increased anxiety related to SOB. Pending placement per CM. -Bipap as tolerated @[facility] -Ventimask during the day Continue the following medications as ordered: -Duoneb scheduled and PRN -Xanax BID and PRN -Spiriva daily -Advair daily -Daliresp daily (3) Hypertension Problem: Chronic Qualifiers: Hypertension type: essential hypertension Qualified Code(s): I10 - Essential (primary) hypertension Narrative: Stable -VS Q4H
[2016-05-27] MEDS: FLUTICASONE/SALMETEROL 14 PUFF DISK.W.DEV IH SCH ×2 (09:00→21:37)
[2016-05-27] MEDS: TIOTROPIUM BROMIDE 5 CAP INHALER IH SCH (09:01)
[2016-05-27] MEDS: ROFLUMILAST 500 MCG TABLET PO SCH (09:03)
[2016-05-27] MEDS: BENAZEPRIL HCL 10 MG TABLET PO SCH (09:03)
[2016-05-27] MEDS: predniSONE 20 MG TABLET PO SCH (09:03)
[2016-05-27] MEDS: FLUTICASONE PROPIONATE 120 SPRAY INHALER NS SCH (09:03)
[2016-05-27] MEDS: ESCITALOPRAM OXALATE 10 MG TAB PO SCH (09:03)
[2016-05-27] MEDS: ALPRAZolam 0.5 MG TABLET PO SCH ×2 (09:06→21:41)
[2016-05-27] MEDS: ALBUTEROL SULFATE 2.5 MG/0.5 ML VIAL.NEB IH PRN ×2 (11:37→17:16)
[2016-05-28] MEDS: ALBUTEROL SULFATE/IPRATROPIUM 3 ML NEBU IH SCH ×7 (02:49→22:10)
[2016-05-28 05:03] LABS: Hematocrit 34.6 % (42.0-52.0); Hemoglobin 10.7 gm/dL (13.5-18.0); Mean Cell Volume 95.6 fl (78-100); Mean Corpuscular Hemoglobin 29.6 pg (27-31); Mean Corpuscular Hgb Conc 30.9 g/dl (32-36); Mean Platelet Volume 10.5 fl (6.0-9.5); Neutrophil # 6.5 K/mm3 (1.3-6.0); Neutrophil % 68.4 % (42-75.0); Platelet Count 220 K/mm3 (150-450); Red Blood Count 3.62 M/mm3 (4.7-6.0); Red Cell Distribution Width 13.9 % (11.5-14.0); White Blood Count 9.5 K/mm3 (4.0-10.5)
[2016-05-28 05:06] LABS: Anion Gap 4.5 mmol/L (6.8-13.8); BUN/Creatinine Ratio 25.6 (9.0-21.6); Calcium * 8.5 mg/dL (7.9-10.9); Carbon Dioxide 41.4 mmol/L (24-32.6); Estimated Creat Clear 150.2; Potassium 3.9 mmol/L (3.4-4.6)
[2016-05-28] MEDS: PANTOPRAZOLE SODIUM 40 MG TABLET.EC PO SCH (06:47)
[2016-05-28] MEDS: MORPHINE SULFATE 10 MG/0.5 ML SYRINGE PO PRN ×3 (07:05→19:37)
--- NOTE | 2016-05-28 07:15 | PN ---
Subjective - Date and Time Seen Date: 05/28/16 Time: 07:00 Subjective Narrative: Pt is doing much better upon examination this morning. His breathing is less labored, he is not as anxious, and he is able to tolerate 3LNC versus venti mask. He received 2 doses of morphine yesterday. LAUREN edema with slight improvement following elevation. Does agree that this allowed him to fall asleep and wear his bipap for 1.5 hours. Is interested in a sleeping aide to assist with his compliance of the bipap and energy during the day. Educated on the use of oral morphine for his air hunger. Eager to start rehab, hoping to be discharged tomorrow to [facility]. Objective - Review of Systems Generalized/Overall Review: Reports: Weakness, Fatigue EENTM: Reports: Other - dry mucus membranes Respiratory: Reports: Cough, Shortness of Breath, Orthopnea, Wheezing Cardiac: Reports: Edema - BUE Abdominal: Reports: No Symptoms Reported Genitourinary Symptoms: Reports: No Symptoms Reported Musculoskeletal Complaints: Reports: No Symptoms Reported Neurological: Reports: Anxiety, Depressed, Weakness Skin: Reports: Dryness Endocrine: Reports: No Symptoms Reported - Vitals Vitals: Last Vital Signs Temp 37.0 C 05/28/16 01:00 Pulse 80 05/28/16 06:09 Resp 20 05/28/16 06:09 BP 146/41 05/28/16 01:00 Pulse Ox 98 05/28/16 05:59 - Abnormal Lab Findings Abnormal Lab Findings: Abnormal Lab Results 05/28/16 05/28/16 Range/Units 04:55 04:55 RBC 3.62 L (4.7-6.0) M/mm3 Hgb 10.7 L (13.5-18.0) gm/dL Hct 34.6 L (42.0-52.0) % MCHC 30.9 L (32-36) g/dl MPV 10.5 H (6.0-9.5) fl Immature Gran % (Auto) 1.00 H (0.001-0.429) % Immature Gran # (Auto) 0.09 H (0.000-0.0310) K/mm3 Lymphocytes % 14.6 L (20-51) % Monocytes % 15.2 H (0.0-9) % Neutrophils # 6.5 H (1.3-6.0) K/mm3 Lymphocytes # 1.4 L (1.5-3.5) k/mm3 Monocytes # 1.4 H (0.0-1.0) k/mm3 Chloride 93 L (97-106) mmol/L Carbon Dioxide 41.4 H (24-32.6) mmol/L Anion Gap 4.5 L (6.8-13.8) mmol/L Est GFR (Non-Af Amer) 207 H (60-130) mL/min BUN/Creatinine Ratio 25.6 H (9.0-21.6) - Exam Constitutional: Present: Alert, Oriented x3, Cooperative, No distress, Elderly ENT Exam: Present: normal ENT inspection, hearing grossly normal Respiratory: Present: chest non-tender, no accessory muscle use, decreased breath sounds, wheezing, expiration (prolonged) Cardiovascular/Chest: Present: normal peripheral pulses, regular rate, rhythm, no chest tenderness, no murmur Abdomen: Present: Normal bowel sounds, soft, nontender, nondistended Extremity: Present: normal range of motion, non-tender, normal inspection, no pedal edema, normal capillary refill, swelling - LAUREN dependent edema Skin Exam: Present: normal color, warm/dry, no cyanosis Neurologic: Present: alert, normal mood/affect, oriented x 3 Appearance: Present: appropriate appearance, appropriate insight, neat, no memory impairment Eye contact: Present: cooperative, good eye contact, normal speech Thoughts: Present: normal thought pattern, no apparent hallucination Assessment/Plan - Problems/Diagnosis (1) Anxiety Problem: Chronic Narrative: Much improved following the addition of oral morphine Q4H PRN for air hunger. -Xanax PRN Q6H and BID -Morphine PRN Q4H air hunger (2) Acute exacerbation of chronic obstructive pulmonary disease (COPD) Problem: Acute Narrative: Stable, No medication changes. Co2 41.4 on labs this morning, continue to increase tolerance to bipap at [facility]. (3) Hypertension Problem: Chronic Qualifiers: Hypertension type: essential hypertension Qualified Code(s): I10 - Essential (primary) hypertension Narrative: Chronic, stable -VS Q4H
[2016-05-28] MEDS: FLUTICASONE/SALMETEROL 14 PUFF DISK.W.DEV IH SCH ×2 (08:54→21:02)
[2016-05-28] MEDS: FLUTICASONE PROPIONATE 120 SPRAY INHALER NS SCH (08:55)
[2016-05-28] MEDS: TIOTROPIUM BROMIDE 5 CAP INHALER IH SCH (08:56)
[2016-05-28] MEDS: predniSONE 20 MG TABLET PO SCH (08:57)
[2016-05-28] MEDS: ROFLUMILAST 500 MCG TABLET PO SCH (08:57)
[2016-05-28] MEDS: BENAZEPRIL HCL 10 MG TABLET PO SCH (08:57)
[2016-05-28] MEDS: ESCITALOPRAM OXALATE 10 MG TAB PO SCH (08:57)
[2016-05-28] MEDS: ALPRAZolam 0.5 MG TABLET PO SCH ×2 (09:00→21:01)
[2016-05-29] MEDS: MORPHINE SULFATE 10 MG/0.5 ML SYRINGE PO PRN ×5 (02:16→23:36)
[2016-05-29] MEDS: ALBUTEROL SULFATE/IPRATROPIUM 3 ML NEBU IH SCH ×6 (04:05→22:41)
[2016-05-29] MEDS: PANTOPRAZOLE SODIUM 40 MG TABLET.EC PO SCH (07:31)
[2016-05-29] MEDS: predniSONE 20 MG TABLET PO SCH (08:15)
[2016-05-29] MEDS: ESCITALOPRAM OXALATE 10 MG TAB PO SCH (08:15)
[2016-05-29] MEDS: BENAZEPRIL HCL 10 MG TABLET PO SCH (08:15)
[2016-05-29] MEDS: ROFLUMILAST 500 MCG TABLET PO SCH (08:16)
[2016-05-29] MEDS: FLUTICASONE/SALMETEROL 14 PUFF DISK.W.DEV IH SCH ×2 (08:16→20:44)
[2016-05-29] MEDS: TIOTROPIUM BROMIDE 5 CAP INHALER IH SCH (08:17)
[2016-05-29] MEDS: FLUTICASONE PROPIONATE 120 SPRAY INHALER NS SCH (08:17)
[2016-05-29] MEDS: ALPRAZolam 0.5 MG TABLET PO SCH ×2 (08:21→20:44)
--- NOTE | 2016-05-29 11:29 | PN ---
Subjective - Date and Time Seen Date: 05/29/16 Time: 08:00 Subjective Narrative: No acute issues overnight. He did not use non-invasive overnight. He admits to significant improvement in his anxiety and perception of shortness of breath after starting oral morphine. Objective - Review of Systems Generalized/Overall Review: Reports: Weakness, Fatigue. Denies: Fever EENTM: Reports: No Symptoms Reported Respiratory: Reports: Cough, Shortness of Breath Cardiac: Reports: No Symptoms Reported Abdominal: Reports: No Symptoms Reported Genitourinary Symptoms: Reports: No Symptoms Reported Musculoskeletal Complaints: Reports: No Symptoms Reported Neurological: Reports: Anxiety, Emotional Problems, Other - Generalized weakness Skin: Reports: Dryness Endocrine: Reports: No Symptoms Reported Misc: All systems neg except as marked - Vitals Vitals: Last Vital Signs Temp 36.4 C L 05/29/16 09:04 Pulse 93 05/29/16 09:04 Resp 20 05/29/16 09:04 BP 135/74 05/29/16 09:04 Pulse Ox 100 05/29/16 09:04 - Exam Constitutional: Present: Alert, Oriented x3, Cooperative, Mild distress - Appears anxious and becomes visibly anxious about his breathing when talking about it ENT Exam: Present: hearing grossly normal, moist mucous membranes Respiratory: Present: decreased breath sounds, expiration (prolonged). Absent: crackles, rales, rhonchi Cardiovascular/Chest: Present: regular rate, rhythm Abdomen: Present: soft, nontender Skin Exam: Present: normal color, warm/dry Neurologic: Present: alert, oriented x 3, other - Appears anxious and becomes visibly anxious about his breathing when talking about it Appearance: Present: appropriate appearance, appropriate insight, neat, no memory impairment Eye contact: Present: cooperative, good eye contact, normal speech Thoughts: Present: no apparent hallucination, other - Appears anxious and becomes visibly anxious about his breathing when talking about it Assessment/Plan Plan Narrative: -Patient continues to report a big improvement in his anxiety and respiratory status after starting oral morphine. Patient and his family report that he is much more calm and able to have good conversations with family members. Continue oral liquid morphine for air hunger/anxiety. Adjust dosing as needed for comfort. -I meet with the patient's family ( and 2 daughters) again today before we all went in and talked with Jayson about the plan of care including end of life care, his goals and wishes as well as hospice. It was made clear that Jayson would not want to be on any sort of machines. Jayson is going to digest everything we talked about and think about things and talk with his family today. Based on our conversations, both Jayson and his family appear to be leaning towards keeping Jayson as comfortable as possible for however many days he may have left. I think this is a very reasonable plan. -Marifer (director of health care marketing) will follow up with Jayson and his family later this afternoon. -Based on patient's desires, discontinue non-invasive ventilation. -Await family decision. Possible discharge tomorrow. - Problems/Diagnosis (1) End stage COPD Problem: Chronic (2) Anxiety Problem: Acute
[2016-05-30] MEDS: ALBUTEROL SULFATE/IPRATROPIUM 3 ML NEBU IH SCH ×6 (02:30→22:09)
[2016-05-30] MEDS: MORPHINE SULFATE 10 MG/0.5 ML SYRINGE PO PRN ×3 (06:16→16:16)
[2016-05-30] MEDS: PANTOPRAZOLE SODIUM 40 MG TABLET.EC PO SCH (06:16)
[2016-05-30] MEDS: TIOTROPIUM BROMIDE 5 CAP INHALER IH SCH (08:41)
[2016-05-30] MEDS: FLUTICASONE/SALMETEROL 14 PUFF DISK.W.DEV IH SCH ×2 (08:41→20:48)
[2016-05-30] MEDS: FLUTICASONE PROPIONATE 120 SPRAY INHALER NS SCH (08:42)
[2016-05-30] MEDS: ALPRAZolam 0.5 MG TABLET PO SCH ×2 (08:43→20:53)
[2016-05-30] MEDS: BENAZEPRIL HCL 10 MG TABLET PO SCH (08:43)
[2016-05-30] MEDS: ESCITALOPRAM OXALATE 10 MG TAB PO SCH (08:43)
[2016-05-30] MEDS: ROFLUMILAST 500 MCG TABLET PO SCH (08:44)
[2016-05-30] MEDS: predniSONE 20 MG TABLET PO SCH (08:44)
--- NOTE | 2016-05-30 11:57 | PN ---
Subjective - Date and Time Seen Date: 05/30/16 Time: 11:52 Subjective Narrative: Jayson reports feeling comfortable today. Reports breathing easy and in no pain thanks to the morphine. Reports no BM for 3 days, abdomen feels full. Denies n/v /f/c. Objective - Vitals Vitals: Last Vital Signs Temp 36.6 C 05/30/16 10:07 Pulse 81 05/30/16 10:07 Resp 20 05/30/16 10:07 BP 116/68 05/30/16 10:07 Pulse Ox 100 05/30/16 10:07 - Exam Constitutional: Present: Alert, Oriented x3, Cooperative ENT Exam: Present: hearing grossly normal Respiratory: Present: decreased breath sounds Cardiovascular/Chest: Present: regular rate, rhythm, no murmur Abdomen: Present: Normal bowel sounds, nontender, nondistended, no hepatospenomegaly, firm Skin Exam: Present: normal color, warm/dry, no cyanosis Appearance: Present: appropriate appearance, appropriate insight Assessment/Plan Plan Narrative: -Due to morphine and decreased activity, having constipation. Will add daily miralax and senna/colace at bedtime to help with discomfort from constipation. -Morphine working well for comfort, patient feeling well today. -Looking into hospice house, will likely go to hospice at [facility] tomorrow. - Problems/Diagnosis (1) End stage COPD Problem: Chronic (2) Constipation Problem: Acute Qualifiers: Constipation type: drug induced constipation Qualified Code(s): K59.03 - Drug induced constipation
[2016-05-30] MEDS: POLYETHYLENE GLYCOL 3350 119 GM BTL PO SCH (13:25)
[2016-05-30] MEDS: ALPRAZolam 0.5 MG TABLET PO PRN (14:47)
[2016-05-30] MEDS ORDERED: SENNOSIDES/DOCUSATE SODIUM 1 TAB TABLET PO SCH (21:00)
[2016-05-31] MEDS: MORPHINE SULFATE 10 MG/0.5 ML SYRINGE PO PRN ×3 (01:33→12:33)
[2016-05-31] MEDS: ALBUTEROL SULFATE/IPRATROPIUM 3 ML NEBU IH SCH ×3 (02:01→10:39)
[2016-05-31] MEDS: PANTOPRAZOLE SODIUM 40 MG TABLET.EC PO SCH (06:35)
[2016-05-31] MEDS: FLUTICASONE/SALMETEROL 14 PUFF DISK.W.DEV IH SCH (08:39)
[2016-05-31] MEDS: ROFLUMILAST 500 MCG TABLET PO SCH (08:40)
[2016-05-31] MEDS: FLUTICASONE PROPIONATE 120 SPRAY INHALER NS SCH (08:40)
[2016-05-31] MEDS: ESCITALOPRAM OXALATE 10 MG TAB PO SCH (08:41)
[2016-05-31] MEDS: BENAZEPRIL HCL 10 MG TABLET PO SCH (08:41)
[2016-05-31] MEDS: POLYETHYLENE GLYCOL 3350 119 GM BTL PO SCH (08:42)
[2016-05-31] MEDS: predniSONE 20 MG TABLET PO SCH (08:42)
[2016-05-31] MEDS: ALPRAZolam 0.5 MG TABLET PO SCH (08:43)
[2016-05-31] MEDS: TIOTROPIUM BROMIDE 5 CAP INHALER IH SCH (08:43)
--- NOTE | 2016-05-31 09:00 | DS ---
(1) End stage COPD Problem: Chronic (2) Anxiety Problem: Acute Description of Stay: ADMISSION DATE: 05.16.2016 DISCHARGE DATE: 05.31.2016 HOSPITAL COURSE: Patient admitted for AECOPD. During his hospital course he continued to have hypercapnic respiratory failure secondary to end stage COPD. There was discussion about starting the patient on a Trilogy Ventilator but ultimately the patient and his family determined that comfort cares and hospice was what they desired. The patient was discharged to [facility] with [facility] care in place. Once a resident bed opens at the [facility] facility, the patient will be transferred there. Procedures Performed: none Discharge Disposition: [facility] Disposition: [facility] Condition: Fair Discharge Activity: Activity as tolerated Discharge Diet: General/regular food Discharge Level of Care:: Hospice - Alf Referrals: Jag Montanez MD [Primary Care Provider] - Additional Patient Instructions (free text): Follow-up with Dr. Woods within 2 weeks on May at 9:00 AM Prescriptions (Any new or edited meds): ALPRAZolam [Xanax] 0.5 mg PO Q4H PRN #50 tablet PRN Reason: Anxiety ALPRAZolam [Xanax] 0.5 mg PO TID #90 tablet Albuterol Sulfate [Albuterol Sulfate 2.5 MG/0.5ML] 2.5 mg IH Q1H PRN #30 vial.neb PRN Reason: Shortness Of Breath Albuterol Sulfate/Ipratropium [Duoneb 2.5-0.5MG/3ML Soln] 3 ml IH Q4H PRN #30 nebu PRN Reason: Shortness Of Breath Escitalopram Oxalate [Lexapro] 10 mg PO DAILY #30 tab Fluticasone Propionate [Flonase] 1 spray NS DAILY PRN #1 inhaler PRN Reason: Nasal Congestion Fluticasone/Salmeterol [Advair 500-50 Diskus] 1 puff IH BID #1 disk.w.dev Morphine Sulfate [Morphine Sulfate Conc. Oral Solution] 5 mg PO Q2H PRN #1 bottle PRN Reason: Anxiety Polyethylene Glycol 3350 [Miralax] 17 gm PO DAILY #1 btl Sennosides/Docusate Sodium [Senokot-S] 2 tab PO HS #60 tablet Complete Home Medications List: Complete Home Medication List: Budesonide/Formoterol Fumarate [Symbicort 160-4.5 Mcg Inhaler] 2 puff IH BID predniSONE [Prednisone] 5 mg PO Q48H 02/22/16 ALPRAZolam [Xanax] 0.5 mg PO Q4H PRN #50 tablet 05/31/16 ALPRAZolam [Xanax] 0.5 mg PO TID #90 tablet 05/31/16 Albuterol Sulfate [Albuterol Sulfate 2.5 MG/0.5ML] 2.5 mg IH Q1H PRN #30 vial.neb 05/31/16 Albuterol Sulfate/Ipratropium [Duoneb 2.5-0.5MG/3ML Soln] 3 ml IH Q4H PRN #30 nebu 05/31/16 Escitalopram Oxalate [Lexapro] 10 mg PO DAILY #30 tab 05/31/16 Fluticasone Propionate [Flonase] 1 spray NS DAILY PRN #1 inhaler 05/31/16 Fluticasone/Salmeterol [Advair 500-50 Diskus] 1 puff IH BID #1 disk.w.dev Morphine Sulfate [Morphine Sulfate Conc. Oral Solution] 5 mg PO Q2H PRN #1 bottle 05/31/16 Polyethylene Glycol 3350 [Miralax] 17 gm PO DAILY #1 btl 05/31/16 Sennosides/Docusate Sodium [Senokot-S] 2 tab PO HS #60 tablet 05/31/16
[2016-05-31 10:17] VITALS: BP 144/71
[2016-05-31] MEDS: ALPRAZolam 0.5 MG TABLET PO PRN (13:57)
== END 2016-05-31 14:00 | DRG 191 ==
LOC: MS 08:27 → OBSVTOIN 05-17 08:27
PROVIDERS: ADMIT Internal Medicine; ATTEND Internal Medicine
PROC: 4A033R1 Measurement of Arterial Saturation, Peripheral, Percutaneous Approach (ICD-10-PCS; principal; 2016-05-17)
DX: J44.1 Chronic obstructive pulmonary disease with (acute) exacerbation (principal); E87.1 Hypo-osmolality and hyponatremia; F41.9 Anxiety disorder, unspecified; R53.1 Weakness; I10 Essential (primary) hypertension; Z99.81 Dependence on supplemental oxygen; Z87.891 Personal history of nicotine dependence
CPT/HCPCS: 36415; 36600; 71010; 71020; 80048; 80053; 81001; 82272; 82803; 83540; 83550; 83880; 84300; 85007; 85025; 92610; 94640; 94660; 97110; 97116; 97161; 97165; 97530; 97535; G0378; G0379; G8996; G8997; G8998